=== PATIENT | male | born 1945 | race Caucasian/White ===

== ENCOUNTER 2017-11-14 12:29 | Inpatient (IN) | payer OTHER ==
[2017-11-14] MEDS: SODIUM CHLORIDE 0.9% 1L BAG IV* (15:46)
[2017-11-14] MEDS: ACETAMINOPHEN 325 MG TAB PO ×2 (15:46→20:15)
[2017-11-14 15:56] LABS: ABNORMAL IP MESSAGE 1; POSITIVE DIFF @See below
[2017-11-14 15:57] LABS: ADD UMIC NO; UR ASCORBIC ACID NEGATIVE (NEGATIVE); UR BILIRUBIN (Dip) NEGATIVE (NEGATIVE); UR BLOOD (Dip) NEGATIVE (NEGATIVE); UR CLARITY CLEAR (CLEAR); UR COLOR YELLOW (YELLOW); UR GLUCOSE (Dip) NEGATIVE (NEGATIVE); UR KETONES (Dip) NEGATIVE (NEGATIVE); UR LEUKOCYTE ESTERASE (Dip) NEGATIVE Leu/ul (NEGATIVE); UR NITRITE (Dip) NEGATIVE (NEGATIVE); UR SPECIFIC GRAVITY (Dip) 1.019 (1.003-1.030); UR TOTAL PROTEIN (Dip) NEGATIVE (NEGATIVE); UR UROBILINOGEN (Dip) NEGATIVE (NEGATIVE)
[2017-11-14 16:00] LABS: WHITE BLOOD COUNT 43.1 10^3/ul (4.8-10.8)
[2017-11-14 16:00] LABS: MEAN CORPUSCULAR HEMOGLOBIN 31.8 pg (29.0-33.0); MEAN CORPUSCULAR HGB CONC 31.7 g/dl (32.0-37.0); MEAN CORPUSCULAR VOLUME 100.6 fl (82.0-101.0); NUCLEATED RED BLOOD CELLS% 13.9 /100WBC (0.0-0.0); RED BLOOD COUNT 1.79 10^6/ul (4.70-6.10); RED CELL DISTRIBUTION WIDTH 26.7 % (11.5-14.5)
[2017-11-14 16:05] LABS: ADD MAN DIFF? YES; HEMOGLOBIN 5.7 g/dl (14.0-18.0); PLATELET COUNT 25 10^3/UL (140-415)
[2017-11-14 16:11] LABS: INR 1.14; PARTIAL THROMBOPLASTIN TIME 29.8 Sec (25.0-35.0); PROTIME 14.8 Sec (11.9-14.9); PT RATIO 1.2
[2017-11-14 16:15] LABS: LACTIC ACID 1.9 mmol/L (0.5-2.0)
[2017-11-14 16:16] LABS: ALANINE AMINOTRANSFERASE 15 IU/L (13-69); ALBUMIN 3.8 g/dl (3.3-4.9); ALBUMIN/GLOBULIN RATIO 0.97; ALKALINE PHOSPHATASE 62 IU/L (42-121); ANION GAP 17 (8-16); ASPARTATE AMINO TRANSFERASE 12 IU/L (15-46); BILIRUBIN,INDIRECT 0.5 mg/dl (0-1.1); BILIRUBIN,TOTAL 0.5 mg/dl (0.2-1.3); BLOOD UREA NITROGEN 15 mg/dl (7-20); CARBON DIOXIDE 23 mmol/L (21-31); CHLORIDE 108 mmol/L (97-110); CREATININE 0.97 mg/dl (0.61-1.24); GLUCOSE 114 mg/dl (70-220); POTASSIUM 3.9 mmol/L (3.5-5.1); SODIUM 144 mmol/L (135-144); TOTAL PROTEIN 7.7 g/dl (6.1-8.1)
[2017-11-14 16:34] LABS: TROPONIN-I < 0.012 ng/ml (0.00-0.12)
[2017-11-14] MEDS: CEFTRIAXONE 1 GM/50 ML (PMX) 50 ML IVPB (16:39)
[2017-11-14] MEDS ORDERED: IOHEXOL 300MG/ML 150 ML BTL (16:45)
[2017-11-14] MEDS ORDERED: SOD CHLORIDE 0.9% 100 ML (16:45)
[2017-11-14] MEDS: VANCOMYCIN 1 GM (PMX) 250 ML IVPB (17:11)
[2017-11-14] MEDS ORDERED: morphine 2 MG INJ IV (17:30)
[2017-11-14] MEDS ORDERED: NACL 0.9% 3 ML SYG IV (17:30)
[2017-11-14] MEDS ORDERED: DOCUSATE SODIUM 100 MG CAP PO (17:30)
[2017-11-14] MEDS ORDERED: HYDROCODONE/APAP (5/325) TAB PO (17:30)
[2017-11-14] MEDS ORDERED: ZOLPIDEM 5 MG TAB PO (17:30)
[2017-11-14] MEDS ORDERED: MAGNESIUM HYDROXIDE 30ML CUP PO (17:30)
[2017-11-14 18:04] LABS: IMMEDIATE SPIN CROSSMATCH 1 4
[2017-11-14 18:54] LABS: LACTIC ACID 0.8 mmol/L (0.5-2.0)
[2017-11-14] MEDS: ONDANSETRON 4 MG INJ IV (19:48)
[2017-11-14 20:30] LABS: LACTIC ACID 2.6 mmol/L (0.5-2.0)
[2017-11-14] MEDS: FERROUS SULFATE (EC) 325 MG TAB PO (22:20)
[2017-11-14 23:29] LABS: PRETRANSFUSION BILIRUBIN 0.3 mg/dl
[2017-11-14 23:29] LABS: POST-TRANSFUSION BILIRUBIN 0.5 mg/dl
[2017-11-15] MEDS: ACETAMINOPHEN 325 MG TAB PO (02:18)
[2017-11-15 07:35] LABS: ABNORMAL IP MESSAGE 1; HEMATOCRIT 18.5 % (42.0-52.0); MEAN CORPUSCULAR HEMOGLOBIN 30.1 pg (29.0-33.0); MEAN CORPUSCULAR HGB CONC 31.4 g/dl (32.0-37.0); MEAN CORPUSCULAR VOLUME 95.9 fl (82.0-101.0); NUCLEATED RED BLOOD CELLS% 16.3 /100WBC (0.0-0.0); POSITIVE DIFF @See below; RED BLOOD COUNT 1.93 10^6/ul (4.70-6.10); RED CELL DISTRIBUTION WIDTH 24.4 % (11.5-14.5)
[2017-11-15 07:35] LABS: WHITE BLOOD COUNT 31.2 10^3/ul (4.8-10.8)
[2017-11-15 07:39] LABS: HEMOGLOBIN 5.8 g/dl (14.0-18.0)
[2017-11-15 07:40] LABS: PLATELET COUNT 11 10^3/UL (140-415)
[2017-11-15 07:41] LABS: ADD MAN DIFF? YES
[2017-11-15 07:57] LABS: ANION GAP 12 (8-16); BLOOD UREA NITROGEN 13 mg/dl (7-20); CALCIUM 7.9 mg/dl (8.4-10.2); CARBON DIOXIDE 21 mmol/L (21-31); CHLORIDE 113 mmol/L (97-110); CREATININE 0.97 mg/dl (0.61-1.24); GLUCOSE 102 mg/dl (70-220); MAGNESIUM 1.5 mg/dl (1.7-2.5); PHOSPHORUS 4.1 mg/dl (2.5-4.9); POTASSIUM 3.8 mmol/L (3.5-5.1); SODIUM 142 mmol/L (135-144)
[2017-11-15] MEDS: ONDANSETRON 4 MG INJ IV (08:09)
[2017-11-15] MEDS: FERROUS SULFATE (EC) 325 MG TAB PO ×2 (08:10→21:47)
[2017-11-15 10:07] LABS: ANISOCYTOSIS 3+ (0-0); BAND NEUTROPHILS #M 0.8 10^3/ul (0.0-0.6); BAND NEUTROPHILS % (M) 2 % (0-4); ERYTHROBLAST% (NRBC) (M) 11 % (0-0); HYPOCHROMASIA 1+ (0-0); LYMPHOCYTES #M 13.7 10^3/ul (0.8-2.9); LYMPHOCYTES % (M) 32 % (15-51); MICROCYTOSIS 3+ (0-0); MONOCYTE #M 1.2 10^3/ul (0.3-0.9); MONOCYTES % (M) 3 % (0-11); MYELOCYTES #M 0.8 10^3/ul (0.0-0.0); MYELOCYTES % (M) 2 % (0-0); PLATELET ESTIMATE SIG DECREASED; POIKILOCYTOSIS 2+ (0-0); POLYCHROMASIA 1+ (0-0); PROMYELOCYTES #M 0.8 10^3/ul (0-0); PROMYELOCYTES % (M) 2 % (0-0); REACTIVE LYMPHOCYTES #M 0.4 10^3/ul (0.0-0.0); REACTIVE LYMPHOCYTES% (M) 1 % (0-0); SMUDGE%M 2 % (0-0)
[2017-11-15] MEDS: SOD CHLORIDE 0.9% 1,000 ML IV (10:23)
[2017-11-15 11:05] LABS: ANISOCYTOSIS 3+ (0-0); BAND NEUTROPHILS #M 2.8 10^3/ul (0.0-0.6); BAND NEUTROPHILS % (M) 9 % (0-4); BASOPHIL #M 0.3 10^3/ul (0.0-0.0); BASOPHILS % (M) 1 % (0-2); BLAST% (M) 60.3 % (0-0); ERYTHROBLAST% (NRBC) (M) 19 % (0-0); LYMPHOCYTES #M 4.6 10^3/ul (0.8-2.9); LYMPHOCYTES % (M) 15 % (15-51); MICROCYTOSIS 3+ (0-0); MONOCYTE #M 2.1 10^3/ul (0.3-0.9); MONOCYTES % (M) 7 % (0-11); MYELOCYTES #M 0.6 10^3/ul (0.0-0.0); MYELOCYTES % (M) 2 % (0-0); PLATELET ESTIMATE SIG DECREASED; POIKILOCYTOSIS 2+ (0-0); POLYCHROMASIA 1+ (0-0); PROMYELOCYTES #M 0.6 10^3/ul (0-0); PROMYELOCYTES % (M) 2 % (0-0); REACTIVE LYMPHOCYTES #M 0.6 10^3/ul (0.0-0.0); REACTIVE LYMPHOCYTES% (M) 2 % (0-0); SEG NEUT #M 1.8 10^3/ul (1.6-7.5); SEGMENTED NEUTROPHILS (M) % 3 % (39-77); SMUDGE%M 4 % (0-0)
[2017-11-15] MEDS: MAGNESIUM SULFATE 4 GM/100 ML 100 ML IVPB (13:00)
[2017-11-15] MEDS: IBUPROFEN 400 MG TAB PO ×2 (15:03→21:47)
[2017-11-15] MEDS: predniSONE 20 MG TAB PO (15:03)
[2017-11-15] MEDS: DIPHENHYDRAMINE 50 MG INJ IV (15:21)
[2017-11-16 07:56] LABS: ABNORMAL IP MESSAGE 1; HEMATOCRIT 25.8 % (42.0-52.0); HEMOGLOBIN 8.4 g/dl (14.0-18.0); MEAN CORPUSCULAR HEMOGLOBIN 30.2 pg (29.0-33.0); MEAN CORPUSCULAR HGB CONC 32.6 g/dl (32.0-37.0); MEAN CORPUSCULAR VOLUME 92.8 fl (82.0-101.0); NUCLEATED RED BLOOD CELLS% 18.3 /100WBC (0.0-0.0); POSITIVE DIFF @See below; RED BLOOD COUNT 2.78 10^6/ul (4.70-6.10); RED CELL DISTRIBUTION WIDTH 22.1 % (11.5-14.5)
[2017-11-16 07:56] LABS: WHITE BLOOD COUNT 25.4 10^3/ul (4.8-10.8)
[2017-11-16 08:06] LABS: PLATELET COUNT 16 10^3/UL (140-415)
[2017-11-16 08:07] LABS: ADD MAN DIFF? YES
[2017-11-16 08:15] LABS: ANION GAP 13 (8-16); BLOOD UREA NITROGEN 17 mg/dl (7-20); CALCIUM 8.4 mg/dl (8.4-10.2); CARBON DIOXIDE 20 mmol/L (21-31); CHLORIDE 116 mmol/L (97-110); CREATININE 0.94 mg/dl (0.61-1.24); GLUCOSE 146 mg/dl (70-220); MAGNESIUM 2.5 mg/dl (1.7-2.5); POTASSIUM 4.1 mmol/L (3.5-5.1); SODIUM 145 mmol/L (135-144)
[2017-11-16] MEDS: FERROUS SULFATE (EC) 325 MG TAB PO (08:50)
[2017-11-16 11:20] LABS: ACANTHOCYTES 1+ (0-0); ANISOCYTOSIS 1+ (0-0); BAND NEUTROPHILS #M 1.5 10^3/ul (0.0-0.6); BAND NEUTROPHILS % (M) 6 % (0-4); BASOPHIL #M 0.2 10^3/ul (0.0-0.0); BASOPHILS % (M) 1 % (0-2); BLAST% (M) 43.6 % (0-0); EOSINOPHILS % (M) 1 % (0-7); ERYTHROBLAST% (NRBC) (M) 28 % (0-0); LYMPHOCYTES #M 3.5 10^3/ul (0.8-2.9); LYMPHOCYTES % (M) 14 % (15-51); METAMYELOCYTES #M 0.2 10^3/ul (0.0-0.0); METAMYELOCYTES %M 1 % (0-0); MICROCYTOSIS 1+ (0-0); MONOCYTE #M 1.7 10^3/ul (0.3-0.9); MONOCYTES % (M) 7 % (0-11); MYELOCYTES #M 0.7 10^3/ul (0.0-0.0); MYELOCYTES % (M) 3 % (0-0); PLATELET ESTIMATE SIG DECREASED; POIKILOCYTOSIS 1+ (0-0); POLYCHROMASIA 1+ (0-0); PROMYELOCYTES #M 0.7 10^3/ul (0-0); PROMYELOCYTES % (M) 3 % (0-0); RBC MORPHOLOGY COMMENT @See below; REACTIVE LYMPHOCYTES #M 1.2 10^3/ul (0.0-0.0); REACTIVE LYMPHOCYTES% (M) 5 % (0-0); SEG NEUT #M 3.9 10^3/ul (1.6-7.5); SEGMENTED NEUTROPHILS (M) % 14 % (39-77); STOMATOCYTES 1+ (0-0); WBC MORPHOLOGY COMMENT @See below
[2017-11-16 17:04] LABS: PATH REVIEW WS
[2017-11-16 17:08] LABS: PATH REVIEW? YES
== END 2017-11-16 15:40 | disposition home or self-care (01) | DRG 836 ==
LOC: TEL 16:31 → E/R 12:29 → MS1 11-16 10:54
PROC: 30233N1 Transfusion of Nonautologous Red Blood Cells into Peripheral Vein, Percutaneous Approach (ICD-10-PCS; 2017-11-14)
PROC: 30233N1 Transfusion of Nonautologous Red Blood Cells into Peripheral Vein, Percutaneous Approach (ICD-10-PCS; principal; 2017-11-15)
DX: C92.00 Acute myeloblastic leukemia, not having achieved remission (principal); D64.81 Anemia due to antineoplastic chemotherapy; D69.6 Thrombocytopenia, unspecified; D69.59 Other secondary thrombocytopenia; D63.0 Anemia in neoplastic disease; Z87.891 Personal history of nicotine dependence; Z90.49 Acquired absence of other specified parts of digestive tract
CPT/HCPCS: 36415; 36430; 71045; 74177; 80048; 80053; 81003; 83605; 83735; 84100; 84484; 85025; 85610; 85730; 86078; 86850; 86900; 86901; 86920; 87040; 87086; 93005; 96374; 96375; 99291-25

== ENCOUNTER 2017-11-23 12:36 | Emergency (ER) | payer OTHER ==
[2017-11-23 13:28] LABS: ABNORMAL IP MESSAGE 1; HEMOGLOBIN 8.8 g/dl (14.0-18.0); MEAN CORPUSCULAR HEMOGLOBIN 30.2 pg (29.0-33.0); MEAN CORPUSCULAR HGB CONC 31.4 g/dl (32.0-37.0); MEAN CORPUSCULAR VOLUME 96.2 fl (82.0-101.0); NUCLEATED RED BLOOD CELLS% 10.3 /100WBC (0.0-0.0); POSITIVE DIFF @See below; RED BLOOD COUNT 2.91 10^6/ul (4.70-6.10); RED CELL DISTRIBUTION WIDTH 21.7 % (11.5-14.5)
[2017-11-23 13:28] LABS: WHITE BLOOD COUNT 37.1 10^3/ul (4.8-10.8)
[2017-11-23 13:30] LABS: ADD MAN DIFF? YES
[2017-11-23 13:40] LABS: ANION GAP 18 (8-16); BLOOD UREA NITROGEN 20 mg/dl (7-20); CALCIUM 9.1 mg/dl (8.4-10.2); CARBON DIOXIDE 23 mmol/L (21-31); CHLORIDE 105 mmol/L (97-110); CREATININE 1.18 mg/dl (0.61-1.24); GLUCOSE 131 mg/dl (70-220); POTASSIUM 4.1 mmol/L (3.5-5.1); SODIUM 142 mmol/L (135-144)
[2017-11-23 14:01] LABS: ANISOCYTOSIS 1+ (0-0); BAND NEUTROPHILS #M 1.4 10^3/ul (0.0-0.6); BAND NEUTROPHILS % (M) 4 % (0-4); ERYTHROBLAST% (NRBC) (M) 9 % (0-0); LYMPHOCYTES #M 2.5 10^3/ul (0.8-2.9); LYMPHOCYTES % (M) 7 % (15-51); METAMYELOCYTES #M 0.7 10^3/ul (0.0-0.0); METAMYELOCYTES %M 2 % (0-0); MYELOCYTES #M 1.8 10^3/ul (0.0-0.0); MYELOCYTES % (M) 5 % (0-0); PLATELET ESTIMATE DECREASED; POIKILOCYTOSIS 1+ (0-0); POLYCHROMASIA 2+ (0-0); REACTIVE LYMPHOCYTES #M 4.8 10^3/ul (0.0-0.0); REACTIVE LYMPHOCYTES% (M) 13 % (0-0); SMUDGE%M 3 % (0-0)
[2017-11-24 14:17] LABS: PLATELET COUNT 22 10^3/UL (140-415)
[2017-11-25 17:33] LABS: PATH REVIEW? YES
== END 2017-11-23 14:31 | disposition home or self-care (01) ==
LOC: E/R 12:36
DX: D69.6 Thrombocytopenia, unspecified (principal); C95.90 Leukemia, unspecified not having achieved remission; R40.2142 Coma scale, eyes open, spontaneous, at arrival to emergency department; R40.2252 Coma scale, best verbal response, oriented, at arrival to emergency department; R40.2362 Coma scale, best motor response, obeys commands, at arrival to emergency department
CPT/HCPCS: 36415; 80048; 85025; 86850; 86900; 86901; 99283-25